=== PATIENT | female | born 1995 | race Caucasian/White ===

== ENCOUNTER 2024-01-06 14:08 | Emergency (ER) | payer OTHER ==
[~2024-01-06] VITALS: Ht 167.6 cm; Wt 132.3 kg
[2024-01-06 15:42] LABS: BASO % 0.6 % (0.0-1.0); EOS # 0.2 10^3/uL (0.0-0.5); EOS % 2.3 % (0.0-3.0); HEMATOCRIT 44.5 % (36.0-47.0); HEMOGLOBIN 15.2 g/dl (12.0-15.5); LYMPH # 1.9 10^3/uL (1.5-5.0); LYMPH % 28.2 % (24.0-44.0); MEAN CORPUSCULAR HEMOGLOBIN 29.7 pg (27.0-33.0); MEAN CORPUSCULAR HGB CONC 34.2 g/dl (32.0-36.5); MEAN CORPUSCULAR VOLUME 86.9 fl (80.0-96.0); MONO # 0.6 10^3/uL (0.0-0.8); MONO % 8.4 % (2.0-8.0); NEUTROPHILS % 60.3 % (36.0-66.0); PLATELET COUNT, AUTOMATED 230 10^3/uL (150-450); RED BLOOD COUNT 5.12 10^6/uL (4.00-5.40); WHITE BLOOD COUNT 6.6 10^3/uL (4.0-10.0)
[2024-01-06 16:06] LABS: BLOOD UREA NITROGEN 6 MG/DL (9-23); CALCIUM LEVEL 8.8 MG/DL (8.5-10.1); CARBON DIOXIDE LEVEL 26 MMOL/L (20-31); CHLORIDE LEVEL 107 MMOL/L (98-107); GLOMERULAR FILTRATION RATE > 60.0 (>60); GLUCOSE, FASTING 84 MG/DL (60-100); POTASSIUM SERUM 4.1 MMOL/L (3.5-5.1); SODIUM LEVEL 138 MMOL/L (136-145)
[2024-01-06 16:07] LABS: HCG, SERUM QUALITATIVE NEGATIVE (NEGATIVE)
[2024-01-06 17:37] VITALS: BP 135/92; TEMP 98.8; O2SAT 98
== END 2024-01-06 17:36 | disposition home or self-care (01) ==
LOC: M ED 14:08
DX: O03.9 Complete or unspecified spontaneous abortion without complication (principal); Z87.59 Personal history of other complications of pregnancy, childbirth and the puerperium

== ENCOUNTER 2024-02-28 19:03 | Emergency (ER) | payer OTHER ==
[~2024-02-28] VITALS: Ht 167.6 cm; Wt 132.8 kg
[2024-02-28 19:07] VITALS: BP 162/68; TEMP 97.3; O2SAT 99
[2024-02-28] MEDS ORDERED: CEPH500C PO (22:30)
[2024-02-28] MEDS: CEPHALEXIN 500 MG CAP PO ONE (22:31)
== END 2024-02-28 22:41 | disposition home or self-care (01) ==
LOC: M ED 19:03
DX: S61.202A Unspecified open wound of right middle finger without damage to nail, initial encounter (principal); W27.4XXA Contact with kitchen utensil, initial encounter; Y92.000 Kitchen of unspecified non-institutional (private) residence as the place of occurrence of the external cause; Y93.G1 Activity, food preparation and clean up; Y99.9 Unspecified external cause status; Z79.2 Long term (current) use of antibiotics